=== PATIENT | male | born 1995 | race Caucasian/White ===

== ENCOUNTER 2023-02-21 19:16 | Emergency (ER) | payer OTHER, SELFPAY ==
--- NOTE | ~2023-02-21 | XR_ITS ---
EXAMINATION: XR CHEST 2 VIEWS CLINICAL INFORMATION: Cough. COMPARISON: None. TECHNIQUE: Frontal and lateral views of the chest were obtained. FINDINGS: The heart, great vessels, pulmonary vasculature and mediastinum are normal. There is a mild patchy infiltrate in the mid and lower left lung. There is no pleural effusion or pneumothorax. There is no acute osseous abnormality. XR/XR chest 2V IMPRESSION: A mild patchy infiltrate is seen in the mid and lower left lung, consistent with acute pneumonia. Recommend short-term follow-up chest radiographs to ensure clearance and exclude the possibility of underlying obstructive process.
[2023-02-21 19:44] VITALS: BP 130/71; PULSE 95; RESP 18; TEMP 36.8; O2SAT 94; BMI 25.1
--- NOTE | 2023-02-21 19:44 | ED_ITS ---
HPI - URI/Sore Throat General Chief Complaint: Upper Respiratory Symptoms Stated Complaint: Difficulties breathing Time Seen by Provider: 02/21/23 20:40 Source: patient Mode of arrival: ambulatory Limitations: no limitations History of Present Illness HPI Narrative: Patient is a 27-year-old male who presents emergency department for evaluation intermittent productive cough, difficulty breathing during coughing episodes, reproducible diffuse anterior chest pain during episodes of coughing. Symptom onset 1 week ago. History of tobacco use, quit 2 years ago, endorses vaping. He has had sick contacts at home. Did at home COVID-19 testing was negative. Denies fevers, chills, neck pain, headache, neck stiffness, nausea vomiting, abdominal pain Related Data Previous Rx's Medication Instructions Recorded amoxicillin 500 mg capsule 1,000 mg (2 x 500 mg) PO TID 5 02/21/23 days #30 caps Allergies Allergy/AdvReac Type Severity Reaction Status Date / Time No Known Allergies Allergy Verified 02/21/23 19:47 Review of Systems Review of Systems: Yes all other systems are reviewed and are negative [facility]LY [facility] Past Medical History Attestation statement: The following information was validated with the patient. Source: old records reviewed Social History Advance Directives: No Advance Directives Information Provided: No Physical Exam Vital Signs: Vital Signs: Last Vital Signs Temp 98.3 F 02/21/23 19:44 Pulse 95 02/21/23 19:44 Resp 18 02/21/23 19:44 BP 130/71 02/21/23 19:44 Pulse Ox 94 02/21/23 19:44 O2 Del Method Room Air 02/21/23 19:44 BMI result Body Mass Index 25.1 Appearance: Alert.?Oriented to person, place and time. No acute distress.?Normal affect. Eyes: Pupils equal, round and reactive to light.? ENT: Pharynx normal.?? Neck: Normal inspection.? Neck supple.?? CVS: Heart sounds normal. Normal heart rate and rhythm.? Pulses normal.?? Respiratory: No respiratory distress.? Lung sounds clear to auscultation bilaterally?? Abdomen: Soft and non-tender. Normoactive bowel sounds. Skin: Skin warm and dry.? Normal skin color.? Extremities: No lower extremity edema.? No calf ttp? Neuro: Moves all extremities spontaneously. Sensation intact bilaterally. No focal neuro deficits. Ambulates with normal steady gait. Course Course Course Narrative: This is a rapid medical exam. Deferred additional HPI, ROS, PE to primary provider. 27 yo male with no known medical history here with diff breathing x 1 week. +vaping history. +sick contact at home. Has had negative covid testing. Will obtain viral testing, CXR. VSS Medical Decision Making Medical Decision Making [facility] Narrative: Patient is a 27-year-old male with no reported past medical history presenting to emergency department for evaluation of productive cough, intermittent chest pain only experienced during coughing. Chest x-ray consistent with infiltrate of the left lower lung concerning for community-acquired pneumonia, Wells negative unlikely pulmonary embolism, no risk factors for ACS. Tolerating oral intake, no hypoxia or respiratory distress. Will send prescription for amoxicillin to patient's pharmacy, reviewed worrisome signs and symptoms that would warrant re-evaluation in the emergency department. All questions were answered. Stable for discharge. Differential Diagnosis Differential Diagnoses: The differential diagnosis associated with the presentation includes (Pneumonia, viral upper respiratory infection, Wells negative, unlikely PE, no risk factors, unlikely ACS) Admission/Observation Consideration of admission/observation: Escalation of care including admission/observation considered (Considered admission for CAP, the narrative above for further detail) Lab Data [facility] Lab Attestation statement: I reviewed the patient's lab results. (COVID influenza and RSV negative) Labs: Lab Results 02/21/23 Range/Units 19:50 Influenza Type A (PCR) NEGATIVE (Negative) Influenza Type B (PCR) NEGATIVE (Negative) RSV RNA Qual (PCR) NEGATIVE (Negative) SARS-CoV-2 RNA (RT-PCR) NEGATIVE (Negative) Independent Interpretation I performed an independent interpretation of an: Plain X-Ray (A personally turbid chest x-ray agree with radiologist impression, infiltrate of the left lower lobe) Radiology Impression Discussion of test interpretation with radiology: I have reviewed the radiologist's reading. Radiologist Impression: XR/XR chest 2V IMPRESSION: A mild patchy infiltrate is seen in the mid and lower left lung, consistent with acute pneumonia. Recommend short-term follow-up chest radiographs to ensure clearance and exclude the possibility of underlying obstructive process. Independent Historian Clinical information obtained from an independent historian. History obtained from or confirmed by: Parent External Record Review External record reviewed: Outpatient record Prescription Management I considered prescription management with: Antibiotic Discharge Plan Discharge Clinical Impression: CAP (community acquired pneumonia) Qualifiers: Laterality: left Lung location: lower lobe of lung Qualified Code(s): J18.9 - Pneumonia, unspecified organism Patient Disposition: Home, Self-Care Instructions: Community Acquired Pneumonia (ED) Prescriptions: New amoxicillin 500 mg capsule 1,000 mg PO TID 5 Days Qty: 30 0RF Referrals: Physician,None [Primary Care Provider] -
[2023-02-21 20:33] LABS: Influenza A PCR NEGATIVE (Negative); Influenza B PCR NEGATIVE (Negative); Resp Syncy Virus RNA Qual PCR NEGATIVE (Negative); SARS COV2 PCR INHOUSE NEGATIVE (Negative)
== END 2023-02-21 22:00 | disposition home or self-care (01) ==
PROVIDERS: Nurse Practitioner Family; Emergency Provider Emergency Medicine
DX: J18.9 Pneumonia, unspecified organism (principal); R05.9 Cough, unspecified; R06.00 Dyspnea, unspecified; Z20.822 Contact with and (suspected) exposure to COVID-19; Z20.828 Contact with and (suspected) exposure to other viral communicable diseases
CPT/HCPCS: 0241U; 71046; 99283; 99284

== ENCOUNTER 2023-09-08 11:22 | Outpatient (AMB) | payer OTHER, SELFPAY ==
--- NOTE | 2023-09-08 11:59 | AM.OFFWIN_ITS ---
Intake Vital Signs 09/08/23 12:02 Height 5 ft 10 in BP 128/72 Blood Pressure Location Rt brachial Position Sitting Pulse 72 Pulse Source Pulse Oximeter Temp 98.3 F Temp Source Oral Pulse Oximetry (%) 98 Intake Visit Reasons: [employer] stomach bug since Sunday Intake Note: pt is here stomach bug since sunday Patient Tobacco Use Status: Never used Tobacco Allergies No Known Allergies Allergy (Verified 09/08/23 12:02) Do you need a note to return to daycare/school/sports/work: No HPI [employer] stomach bug since Sunday HPI Details Patient is a 27-year-old male who is new to the walk-in clinic and comes today complaining of 3 days into a course of nausea vomiting and diarrhea. He states that he had no known sick contacts. He did not check for COVID with home test. He denies blood or coffee grounds in the stools. No fever chills, weakness or dizziness, nausea vomiting or diarrhea, chest pain or shortness of breath, respiratory symptoms, or other significant associated symptoms. He has no pertinent past medical history and denies obvious food borne source of symptoms. [facility] Social History Patient Tobacco Use Status: Never used Tobacco Review of Systems Const All systems reviewed & are unremarkable except as noted in HPI and below Physical Exam Vital Signs: Last Vital Signs Temp 98.3 F 09/08/23 12:02 Pulse 72 09/08/23 12:02 BP 128/72 09/08/23 12:02 Pulse Ox 98 09/08/23 12:02 Const General: cooperative, healthy appearing, comfortable, no acute distress, alert, awake, Physically active and well groomed; No anxious, diaphoretic, ill appearing, intoxicated appearing, poor hygiene or tired appearing Nutritional Appearance: average body habitus Limitations: no limitations Resp Effort & Inspection: normal respiratory effort, able to speak in complete sentences, no audible wheezes, no cough, no grunting, not labored, no nasal flaring, no retractions and symmetric chest movement Auscultation: clear to auscultation bilaterally, no crackles, no rales, no rhonchi, no wheezes, lung sounds not diminished and No rub present Cardio Rate: regular rate GI Palpation (GI): Soft to palpation, not firm, Tenderness to palpation present (GI) (Diffusely) not at McBurney's point, Eric's sign negative and with no rebound tenderness and No hepatosplenomegaly present Skin Other: Good color, warm and dry Psych Appearance: grossly normal Mental Status: mental status grossly normal Speech and movement: Normal speech and movement present Affect: normal affect Attitude: cooperative Thought process: Normal thought process present Insight: Good insight present (Psych) Judgement: Good judgement present (Psych) Assessment & Plan Assessment & Plan (1) Gastroenteritis: Code(s): K52.9 - Noninfective gastroenteritis and colitis, unspecified Plan: Patient is a 27-year-old male 3 days in with apparent acute gastroenteritis. Pending flu COVID and RSV testing. Symptoms are starting to resolve, and he has been able to keep water intake steady. His vital signs are stable and he does not appear to have a surgical abdomen. I wrote him for a course of Zofran and advised that he continue an adequate water intake so he does not become dehydrated, and to start a bland diet when able to tolerate-we discussed the brat diet. He will follow up with PCP or return to the walk-in if needed, if symptoms persist. He knows to go to the emergency department with worrisome symptoms, such as worsening abdominal pain. Orders: Orders SARS-CoV2/FLU/RSV 09/08/23 J06.9 - Acute upper respiratory infection, unspecified Medications: New ondansetron 4 mg PO TID PRN 15 tabs 0RF nausea and vomiting 5 days Discontinued amoxicillin Discontinued Reason: Patient Refused 1,000 mg (2 x 500 mg) PO TID 5 days 30 caps 0RF Coding Level of Care Code New Pt Level 4 (85940) Diagnoses Gastroenteritis K52.9
[2023-09-08 12:02] VITALS: BP 128/72; PULSE 72; TEMP 36.8; O2SAT 98
== END 2023-09-08 13:04 | disposition home or self-care (01) ==
PROVIDERS: Visit Provider Physician Assistant Medical
DX: K52.9 Noninfective gastroenteritis and colitis, unspecified (principal)
CPT/HCPCS: 99051; 99204

== ENCOUNTER 2023-09-08 13:35 | Outpatient (REF) | payer OTHER, SELFPAY ==
[2023-09-08 15:56] LABS: Influenza A PCR NEGATIVE (Negative); Influenza B PCR NEGATIVE (Negative); Resp Syncy Virus RNA Qual PCR NEGATIVE (Negative); SARS COV2 PCR INHOUSE NEGATIVE (Negative)
== END 2023-09-08 13:36 | disposition home or self-care (01) ==
LOC: HO.LAB 13:35
PROVIDERS: Visit Provider Physician Assistant Medical
DX: J06.9 Acute upper respiratory infection, unspecified (principal)
CPT/HCPCS: 0241U